=== PATIENT | male | born 1960 | race Caucasian/White ===

== ENCOUNTER 2021-02-08 19:43 | Emergency (ER) | payer BC, SELFPAY ==
[2021-02-08] MEDS ORDERED: Lidocaine 1% w/Epinephrine 1:100K 20 ML VIAL ONE (20:39)
[2021-02-08] MEDS ORDERED: Boostrix 0.5 ML (Tdap) VIAL ONE (20:54)
[2021-02-08] MEDS ORDERED: Bacitracin 1 PK ONE (20:59)
== END 2021-02-08 21:10 | disposition home or self-care (01) ==
LOC: MADERS 19:43
DX: S71.112A Laceration without foreign body, left thigh, initial encounter (principal); I10 Essential (primary) hypertension; I25.2 Old myocardial infarction; E11.9 Type 2 diabetes mellitus without complications; Z79.84 Long term (current) use of oral hypoglycemic drugs; Z79.899 Other long term (current) drug therapy; W29.3XXA Contact with powered garden and outdoor hand tools and machinery, initial encounter
CPT/HCPCS: 12002; 90471; 90715